=== PATIENT | female | born 1970 | race Hispanic/Latino ===

== ENCOUNTER 2022-03-14 12:20 | Outpatient (CLI) | payer BC, SELFPAY ==
--- NOTE | ~2022-03-14 | MMUS_ITS ---
EXAMINATION: MM diagnostic luis BI w job, US breast LT limited HISTORY: Left breast pain. TECHNIQUE: Additional 3-D tomosynthesis images of the left breast were performed and synthetic 2-D im ages were generated. CAD analysis was submitted and interpreted. High resolution Limited left breast ultrasound was performed. COMPARISON: None BREAST PARENCHYMAL COMPOSITION: Breast composed of scattered areas of fibroglandular density FINDINGS: MAMMOGRAPHIC FINDINGS: There are no suspicious masses, calcifications or architectural distortion in either breast to sugges t malignancy. ULTRASOUND: Limited left breast ultrasound: Normal heterogeneous echotexture without focal solid or cystic mass. IMPRESSION: 1. No evidence for malignancy in either breast 2. Routine yearly screening mammogram and regular clinical breast examination are recommended. BI-RADS Category 1: Negative Reviewed, dictated and finalized at location A. IMPRESSION: 1. No evidence for malignancy in either breast 2. Routine yearly screening mammogram and regular clinical breast examination a re recommended. BI-RADS Category 1: Negative
--- NOTE | ~2022-03-14 | US_ITS ---
US soft tissue groin RT DATE: 03/14/2022 13:52 INDICATION: Right inguinal pain for a few months. No lump. TECHNIQUE: Real-time and color flow imaging of the right inguinal area including imaging during Valsa lva maneuver COMPARISON: None FINDINGS: No abnormal soft tissue mass or fluid collection or any apparent herniated bowel structure is identified. IMPRESSION: No significant abnormality. Reviewed, dictated and finalized at Location [facility]. Reviewed, dictated and finalized at location A. IMPRESSION: No significant abnormality.
== END 2022-03-14 12:21 | disposition home or self-care (01) ==
PROVIDERS: Visit Provider Nurse Practitioner Obstetrics & Gynecology
DX: R10.2 Pelvic and perineal pain (principal)
CPT/HCPCS: 76642; 76882; 77062; 77066; G0279

== ENCOUNTER 2022-06-17 16:58 | Outpatient (CLI) | payer BC, SELFPAY ==
--- NOTE | ~2022-06-17 | DEXA_ITS ---
Bone Density Report Name: ALETA MARIE Age: 52 Sex: Female Ethnicity: White Date of : 1970 Indication: postmenopausal; screening for osteoporosis; rheumatoid arthritis; Referring Provider: BAM, YANCI Loya Study: Bone densitometry was performed. Exam Date: June 17, 2022 Accession number: [id number] Bone Density: Region BMD T-score Z-score Classification AP Spine(L1-L4) 0.965 -0.7 0.1 Normal Femoral Neck (Left) 0.882 0.3 1.1 Normal Total Hip (Left) 1.033 0.7 1.3 Normal Femoral Neck (Right) 0.923 0.7 1.5 Normal Total Hip (Right) 1.060 1.0 1.5 Normal Total Hip Mean 1.046 0.9 1.4 Normal World Health Organization criteria for BMD impression classify patients as: Normal (T-score at or above -1.0), Osteopenia (T-score between -1.0 and -2.5), or Osteoporosis (T-score at or below -2.5). 10-year Fracture Risk: FRAX not reported because: All T-scores for Spine Total, Hip Total, Femoral Neck at or above -1.0 Clinical Information Provided by Patient: Has rheumatoid arthritis Has used the following medications: Vitamin D, Calcium Patient maximum height was 63.5 Menopause Age: 44 No regular weight bearing exercise Drinks caffeinated beverages Onset of menses at age 11 Number of children 1 Impression: The patient has normal bone mass. Discussion: BONE DENSITY IS ABOVE THE MINIMUM DESIRABLE LEVEL AT ALL SKELETAL SITES TESTED. This patient?s bone mineral density is above the minimum desirable level (T-score -1.0 or better) at all sites measured. The patient should follow a healthful lifestyle (good nutrition with adequate calcium and vitamin D, and appropriate weight-bearing exercise). Follow-Up: Consider repeating this study in 5 years or sooner if there is some new clinical indication. Reported by: JAI on 06/17/2022 5:20:00 PM. Reviewed, dictated and finalized at location [place] [facility]
== END 2022-06-17 16:59 | disposition home or self-care (01) ==
LOC: ANHIMG 16:59
PROVIDERS: Visit Provider Nurse Practitioner Obstetrics & Gynecology
DX: Z78.0 Asymptomatic menopausal state (principal)
CPT/HCPCS: 77080